=== PATIENT | male | born 1980 | race Two or more races ===

== ENCOUNTER 2020-01-24 13:50 | Inpatient (IN) | payer BC ==
--- NOTE | 2020-01-24 14:54 | CR ---
Indication: Positive for coronavirus 19 Comparison: None available. Technique: Single AP view chest Findings: There is hyperinflation and moderate bronchial thickening. There are patchy airspace opacities of the bilateral hemithoraces likely representing multifocal infiltrates. The cardiomediastinal silhouette is within normal limits. The bony thorax is grossly intact. Impression: Hyperinflation with moderate bronchial thickening. Patchy airspace opacities likely representing multifocal infiltrates. Dictated by Zheng Borges MD @ Jan 24 2020 2:50PM Signed by Dr. Zheng Borges @ Jan 24 2020 2:52PM
--- NOTE | 2020-01-24 15:00 | EDM.PDOC ---
ED [facility] GENERAL MEDICAL PROBLEM - General Chief Complaint: Respiratory Problem Stated Complaint: COVID Time Seen by Provider: 01/24/20 13:55 Source of Information: Reports: Patient, Old Records History Limitations: Reports: No Limitations - History of Present Illness INITIAL COMMENTS - FREE TEXT/NARRATIVE: This is a very pleasant 39-year-old male with no past medical history presenting with infectious symptoms. He reports an 8-day history of cough, intermittent fever, body aches, fatigue, diarrhea. He reports a 2-day history of intermittent substernal chest discomfort described as "poking". Also complains of some exertional shortness of breath. He did test positive for COVID-19 earlier today at another clinic. His is also ill with COVID-19. Nothing makes the chest pain better or worse. It is not exertional. It does not radiate. He is intermittently taking [id number] cough and cold medications without much relief. Denies any history of coronary artery disease, cardiac history, or venous thromboembolism. Denies any lower extremity swelling or pain, hemoptysis. No surgical history. ROS: A 10-point review of systems was negative, except as noted in the HPI (or in the ROS section of this note). Past medical history: Reviewed, no additional pertinent history. Surgical history: Reviewed in system, no additional pertinent history. Social history: Reviewed in system, no additional pertinent history. Family history: Reviewed in system, no additional pertinent history. Limited physical examination was performed due to COVID pandemic, distanced physical examination to prevent physician exposure and to preserve PPE. Vital signs reviewed. Nursing notes reviewed. Constitutional: Awake, alert, non-distressed. Head: Normocephalic, atraumatic. Eyes: No scleral icterus. Neck: Able to fully flex and extend. Fully rotates side to side. Cardiovascular: No extremity edema. Pulmonary: normal work of breathing, no accessory muscle use. Speaking in full sentences, handling secretions well. Abdomen/GI: nondistended Musculoskeletal: No deformities. Integumentary: Appropriate color for ethnicity, warm, dry, no pallor or jaundice, no rash. Neurologic: Alert, answering questions appropriately, normal speech, no facial droop, moving all extremities well. Normal voice. Psychiatric: Appropriate mood and affect, normal thought process. This patient was seen and evaluated during the 2019 SARS-CoV-2 novel coronavirus pandemic period. Community viral transmission is ongoing at time of this encounter. generalized Pain Score (Numeric/FACES): 10 - Related Data Allergies Allergy/AdvReac Type Severity Reaction Status Date / Time No Known Allergies Allergy Verified 01/24/20 14:18 Home Meds: Home Meds . [No Known Home Meds] 01/24/20 [History] Past Medical History - Past Health History Medical/Surgical History: Denies Medical/Surgical History Social & Family History - Tobacco Use Tobacco Use Status *Q: Never Tobacco User - Recreational Drug Use Recreational Drug Use: No ED ROS GENERAL - Review of Systems Review Of Systems: See Below ED EXAM, GENERAL - Physical Exam Exam: See Below #1 Interpretation EKG Interpretation Comments: 12-Lead ECG Interpretation Acquired: 3:38 PM Rhythm: Sinus rhythm Rate: 100 beats a minute [place]: Normal Intervals: Normal Ectopy: None RV Strain: No obvious RV strain pattern. ST Segments/T-Waves: No notable changes Acute Ischemic Changes: None apparent Interpretation: No STEMI Course - Vital Signs Text/Narrative:: Patient hemodynamically stable, afebrile, well-appearing, looks nontoxic. Differential diagnosis includes but is not limited to: COVID-19 infection, bacterial pneumonia, viral pneumonia, acute viral syndrome, less likely acute coronary syndrome or pulmonary embolism, and many others Chest x-ray shows hyperinflation with moderate bronchial thickening and patchy airspace opacities. Twelve-lead EKG is nonischemic. CBC shows normal cell lines. Metabolic panel shows mild creatinine elevation at 1.4. Negative troponin. Low suspicion for PE given normal heart rate and oxygen saturations. No hemoptysis or lower extremity edema. No historical risk factors for VTE other than COVID infection. No objective evidence of myocardial ischemia. His symptoms seem to be consistent with a COVID-19 infection. No evidence of acute coronary syndrome and low suspicion for pulmonary embolism. We did ambulate the patient around the emergency department and he did desaturate to 89% and appeared dyspneic with respiratory rate in the low 20s. Given the hypoxia and increased work of breathing I think he should be admitted to the hospital. Will administer low flow nasal cannula oxygen, dexamethasone, remdesivir (verbally consented by the admitting hospitalist team), and some IV fluids. I spoke with the hospitalist Dr. Han Ro who agrees to admit. Last Recorded V/S: Last Vital Signs Temp 37.9 C 01/24/20 14:15 Pulse 108 H 01/24/20 16:15 Resp 22 H 01/24/20 16:15 BP 114/73 01/24/20 16:15 Pulse Ox 92 L 01/24/20 16:15 - Orders/Labs/Meds Orders: Active Orders 24 hr Category Date Time Status EKG Documentation Completion [RC] STAT Care 01/24/20 14:22 Active Medication Orders Acetaminophen (Tylenol) 650 mg PO Q4H PRN PRN Reason: Pain (Mild 1-3)/fever Albuterol/Ipratropium (Combivent Respimat) 0 gm INH Q6HRRT [facility] Azithromycin (Zithromax) 500 mg PO Q24H [facility] Dexamethasone (Dexamethasone) 6 mg PO DAILY@1700 YAKLEIN Enoxaparin Sodium (Lovenox) 40 mg SUBCUT Q24H [facility] Lactated Ringer's (Ringers, Lactated) 1,000 mls @ 999 mls/hr IV .BOLUS ONE Stop: 01/24/20 17:33 Last Admin: 01/24/20 17:04 Dose: 999 mls/hr Documented by: GRECIA Remdesivir 100 mg/ Sodium (Chloride) 100 mls @ 100 mls/hr IV Q24H YAKELIN Stop: 01/28/20 17:59 Ceftriaxone Sodium/Dextrose 1 (gm/ Premix) 50 mls @ 100 mls/hr IV Q24H YAKELIN Ondansetron HCl (Zofran) 4 mg IVPUSH Q4H PRN PRN Reason: Nausea Pantoprazole Sodium (Protonix) 40 mg PO DAILY [facility] Labs: Laboratory Tests 01/24/20 01/24/20 Range/Units 15:19 15:19 WBC 7.26 (4.0-11.0) K/uL RBC 5.05 (4.50-5.90) M/uL Hgb 15.1 (13.0-17.0) g/dL Hct 44.6 (38.0-50.0) % MCV 88.3 (80.0-98.0) fL MCH 29.9 (27.0-32.0) pg MCHC 33.9 (31.0-37.0) g/dL RDW Std Deviation 44.2 (28.0-62.0) fl RDW Coeff of Sarmad 14 (11.0-15.0) % Plt Count 168 (150-400) K/uL MPV 8.70 (7.40-12.00) fL Neut % (Auto) 81.9 H (48.0-80.0) % Lymph % (Auto) 15.0 L (16.0-40.0) % [place] % (Auto) 3.0 (0.0-15.0) % Eos % (Auto) 0.0 (0.0-7.0) % Baso % (Auto) 0.1 (0.0-1.5) % Neut # (Auto) 5.9 H (1.4-5.7) K/uL Lymph # (Auto) 1.1 (0.6-2.4) K/uL [place] # (Auto) 0.2 (0.0-0.8) K/uL Eos # (Auto) 0.0 (0.0-0.7) K/uL Baso # (Auto) 0.0 (0.0-0.1) K/uL Nucleated RBC % 0.0 /100WBC Nucleated RBCs # 0 K/uL Sodium 134 L (136-148) mmol/L Potassium 4.2 (3.5-5.1) mmol/L Chloride 99 (98-107) mmol/L Carbon Dioxide 21.7 (21.0-32.0) mmol/L BUN 17 (7.0-18.0) mg/dL Creatinine 1.4 H (0.8-1.3) mg/dL Est Cr Clr Drug Dosing 80.73 mL/min Estimated GFR (MDRD) 55.8 ml/min Glucose 108 H (74-106) mg/dL Calcium 8.6 (8.5-10.1) mg/dL Total Bilirubin 0.5 (0.2-1.0) mg/dL AST 39 H (15-37) IU/L ALT 49 (14-63) IU/L Alkaline Phosphatase 65 (46-116) U/L Troponin I < 0.050 (0.000-0.056) ng/mL Total Protein 8.0 (6.4-8.2) g/dL Albumin 3.4 (3.4-5.0) g/dL Globulin 4.6 H (2.6-4.0) g/dL Albumin/Globulin Ratio 0.7 L (0.9-1.6) Meds: Medications Generic Name Dose Route Start Last Admin Trade Name Freperi PRN Reason Stop Dose Admin Acetaminophen 650 mg 01/24/20 17:09 Tylenol PO Q4H PRN Pain (Mild 1-3)/fever Albuterol/Ipratropium 0 gm 01/24/20 18:00 Combivent Respimat INH Q6HRRT [facility] Azithromycin 500 mg 01/24/20 17:30 Zithromax PO Q24H [facility] Dexamethasone 6 mg 01/25/20 17:00 Dexamethasone PO DAILY@1700 [facility] Enoxaparin Sodium 40 mg 01/24/20 17:00 Lovenox SUBCUT Q24H [facility] Lactated Ringer's 1,000 mls @ 999 mls/hr 01/24/20 16:33 01/24/20 17:04 Ringers, Lactated IV 01/24/20 17:33 999 mls/hr .BOLUS ONE Administration Remdesivir 100 mg/ Sodium 100 mls @ 100 mls/hr 01/25/20 17:00 Chloride IV 01/28/20 17:59 Q24H [facility] Ceftriaxone Sodium/Dextrose 1 50 mls @ 100 mls/hr 01/24/20 17:30 gm/ Premix IV Q24H [facility] Ondansetron HCl 4 mg 01/24/20 17:09 Zofran IVPUSH Q4H PRN Nausea Pantoprazole Sodium 40 mg 01/24/20 17:15 Protonix PO DAILY [facility] Discontinued Medications Generic Name Dose Route Start Last Admin Trade Name Freperi PRN Reason Stop Dose Admin Dexamethasone 6 mg 01/24/20 16:28 01/24/20 17:04 Decadron IVPUSH 01/24/20 16:29 6 mg ONETIME ONE Administration Remdesivir 200 mg/ Sodium 250 mls @ 250 mls/hr 01/24/20 16:31 Chloride IV 01/24/20 16:32 ONETIME ONE Departure - Departure Time of Disposition: 16:04 Disposition: Admitted As Inpatient 64 Condition: Good Clinical Impression: COVID-19 virus infection, Atypical chest pain, Hypoxia - Discharge Information *PRESCRIPTION DRUG MONITORING PROGRAM REVIEWED*: Not Applicable *COPY OF PRESCRIPTION DRUG MONITORING REPORT IN PATIENT DALLIN: Not Applicable Sepsis Event Note (ED) - Evaluation Sepsis Screening Result: No Definite Risk - Focused Exam Vital Signs: Vital Signs Temp Pulse Resp BP Pulse Ox 01/24/20 16:15 108 H 22 H 114/73 92 L 01/24/20 14:15 37.9 C 93 19 141/81 H 95 - My Orders Last 24 Hours: My Active Orders 01/24/20 14:22 EKG Documentation Completion [RC] STAT - Assessment/Plan Last 24 Hours: My Active Orders 01/24/20 14:22 EKG Documentation Completion [RC] STAT
[2020-01-24 15:56] LABS: BLOOD UREA NITROGEN,BUN 17 mg/dL (7.0-18.0); CARBON DIOXIDE,CO2 21.7 mmol/L (21.0-32.0); CHLORIDE,CL 99 mmol/L (98-107); GLUCOSE RANDOM 108 mg/dL (74-106); POTASSIUM,K 4.2 mmol/L (3.5-5.1); SODIUM,NA 134 mmol/L (136-148)
[2020-01-24] MEDS ORDERED: Dexamethasone 10 MG/ML SDV IVPUSH ONE (16:28)
[2020-01-24] MEDS ORDERED: REMDESIVIR 200 MG in Sodium Chloride 0.9% 250 ML IV ONE (16:31)
[2020-01-24] MEDS ORDERED: Lactated Ringers 1,000 ML IV ONE (16:33)
[2020-01-24] MEDS ORDERED: Ondansetron 4 MG/2 ML SDV IVPUSH PRN (17:09)
--- NOTE | 2020-01-24 17:10 | PCM.HP.2 ---
H&P History of Present Illness - General Date of Service: 01/24/20 Admit Problem/Dx: Admission Diagnosis/Problem Admission Diagnosis/Problem Hypoxia Source of Information: Patient History Limitations: Reports: No Limitations - History of Present Illness Initial Comments - Free Text/Narative: 39-year-old male presents complaining of shortness of breath, productive cough, fever, body aches and diarrhea for the past 8 days. He reports no significant PMH. He also complains of central chest pain that is constant in nature but worsens when he coughs. The chest pain is not worsened with activity and does not improve with rest. It is described as being sharp in nature. Patient tested positive for COVID-19 at [facility] walk-in clinic earlier today. He reports occasional alcohol use, no tobacco or illicit drug use. In the ER, CBC unremarkable, creatinine 1.4, troponin was negative and CXR showed multifocal infiltrates bilaterally. EKG showed normal sinus rhythm. Patient had normal oxygen saturation on room air but noted to have desaturation to 88% on ambulation. He was given IV 1 L LR bolus, dexamethasone 6 mg and Remdesivir 200 mg. Patient admitted for further evaluation and treatment. generalized Pain Score (Numeric/FACES): 10 - Related Data Allergies/Adverse Reactions: Allergies Allergy/AdvReac Type Severity Reaction Status Date / Time No Known Allergies Allergy Verified 01/24/20 14:18 Home Medications: Home Meds . [No Known Home Meds] 01/24/20 [History] Past Medical History - Past Health History Medical/Surgical History: Denies Medical/Surgical History Social & Family History - Tobacco Use Tobacco Use Status *Q: Never Tobacco User - Recreational Drug Use Recreational Drug Use: No H&P Review of Systems - Review of Systems: Review Of Systems: Comprehensive ROS is negative, except as noted in HPI. Exam - Exam Exam: See Below - Vital Signs Vital Signs: Last Vital Signs Temp 37.9 C 01/24/20 14:15 Pulse 108 H 01/24/20 16:15 Resp 22 H 01/24/20 16:15 BP 114/73 01/24/20 16:15 Pulse Ox 92 L 01/24/20 16:15 Weight: 138.346 kg - Exam General: Alert, Oriented, Cooperative, Mild Distress HEENT: Conjunctiva Clear, EOMI, Pupils Equal, Pupils Reactive Neck: Supple, Trachea Midline Lungs: Clear to Auscultation, Normal Respiratory Effort Cardiovascular: Regular Rate, Regular Rhythm GI/Abdominal Exam: Normal Bowel Sounds, Soft, Non-Tender, No Distention Extremities: Normal Inspection, No Pedal Edema Peripheral Pulses: 2+: Radial (L), Radial (R) Skin: Warm, Dry, Intact Neurological: Cranial Nerves Intact, Strength Equal Bilateral, Normal Speech, Normal Tone Neuro Extensive - Mental Status: Alert, Oriented x3, Normal Mood/Affect Psychiatric: Alert, Normal Affect, Normal Mood - Patient Data Lab Results Last 24 hrs: Laboratory Results - last 24 hr 01/24/20 01/24/20 Range/Units 15:19 15:19 WBC 7.26 (4.0-11.0) K/uL RBC 5.05 (4.50-5.90) M/uL Hgb 15.1 (13.0-17.0) g/dL Hct 44.6 (38.0-50.0) % MCV 88.3 (80.0-98.0) fL MCH 29.9 (27.0-32.0) pg MCHC 33.9 (31.0-37.0) g/dL RDW Std Deviation 44.2 (28.0-62.0) fl RDW Coeff of Sarmad 14 (11.0-15.0) % Plt Count 168 (150-400) K/uL MPV 8.70 (7.40-12.00) fL Neut % (Auto) 81.9 H (48.0-80.0) % Lymph % (Auto) 15.0 L (16.0-40.0) % [place] % (Auto) 3.0 (0.0-15.0) % Eos % (Auto) 0.0 (0.0-7.0) % Baso % (Auto) 0.1 (0.0-1.5) % Neut # (Auto) 5.9 H (1.4-5.7) K/uL Lymph # (Auto) 1.1 (0.6-2.4) K/uL [place] # (Auto) 0.2 (0.0-0.8) K/uL Eos # (Auto) 0.0 (0.0-0.7) K/uL Baso # (Auto) 0.0 (0.0-0.1) K/uL Nucleated RBC % 0.0 /100WBC Nucleated RBCs # 0 K/uL Sodium 134 L (136-148) mmol/L Potassium 4.2 (3.5-5.1) mmol/L Chloride 99 (98-107) mmol/L Carbon Dioxide 21.7 (21.0-32.0) mmol/L BUN 17 (7.0-18.0) mg/dL Creatinine 1.4 H (0.8-1.3) mg/dL Est Cr Clr Drug Dosing 80.73 mL/min Estimated GFR (MDRD) 55.8 ml/min Glucose 108 H (74-106) mg/dL Calcium 8.6 (8.5-10.1) mg/dL Total Bilirubin 0.5 (0.2-1.0) mg/dL AST 39 H (15-37) IU/L ALT 49 (14-63) IU/L Alkaline Phosphatase 65 (46-116) U/L Troponin I < 0.050 (0.000-0.056) ng/mL Total Protein 8.0 (6.4-8.2) g/dL Albumin 3.4 (3.4-5.0) g/dL Globulin 4.6 H (2.6-4.0) g/dL Albumin/Globulin Ratio 0.7 L (0.9-1.6) Result Diagrams: 01/24/20 15:19 01/24/20 15:19 Sepsis Event Note - Evaluation Sepsis Screening Result: No Definite Risk - Focused Exam Vital Signs: Vital Signs Temp Pulse Resp BP Pulse Ox 01/24/20 16:15 108 H 22 H 114/73 92 L 01/24/20 14:15 37.9 C 93 19 141/81 H 95 - Problem List (1) Hypoxia SNOMED Code(s): 934829102 ICD Code: R09.02 - HYPOXEMIA Status: Acute Current Visit: Yes (2) ELSIE (acute kidney injury) SNOMED Code(s): 88760928, 04220079 ICD Code: N17.9 - ACUTE KIDNEY FAILURE, UNSPECIFIED Status: Acute Current Visit: Yes (3) COVID-19 virus infection SNOMED Code(s): 080306204 ICD Code: U07.1 - COVID-19 Status: Acute Current Visit: Yes Problem List Initiated/Reviewed/Updated: Yes Orders Last 24hrs: Active Orders 24 hr Category Date Time Status Admission Status [Patient Status] [ADT] Stat ADT 01/24/20 16:31 Active EKG Documentation Completion [RC] STAT Care 01/24/20 14:22 Active Oxygen Therapy [RC] PRN Care 01/24/20 17:09 Ordered Oxygen Therapy, ED [RC] ASDIRECTED Care 01/24/20 16:32 Active Up ad Gaye [RC] ASDIRECTED Care 01/24/20 17:09 Ordered VTE/DVT Education [RC] PER UNIT ROUTINE Care 01/24/20 17:09 Ordered Vital Signs [RC] Q4H Care 01/24/20 17:09 Ordered Regular Diet [DIET] Diet 01/24/20 Dinner Ordered CBC WITH AUTO DIFF [HEME] AM Lab 01/25/20 05:11 Ordered COMPREHENSIVE METABOLIC PN,CMP [CHEM] AM Lab 01/25/20 05:11 Ordered Acetaminophen [TylenoL] Med 01/24/20 17:09 Ordered 650 mg PO Q4H PRN Enoxaparin [Lovenox] Med 01/24/20 17:15 Ordered 40 mg SUBCUT Q24H Lactated Ringers [Ringers, Lactated] 1,000 ml Med 01/24/20 16:33 Active IV .BOLUS Ondansetron [Zofran] Med 01/24/20 17:09 Ordered 4 mg IVPUSH Q4H PRN Resuscitation Status Routine Resus Stat 01/24/20 17:09 Ordered Medication Orders Acetaminophen (Tylenol) 650 mg PO Q4H PRN PRN Reason: Pain (Mild 1-3)/fever Enoxaparin Sodium (Lovenox) 40 mg SUBCUT Q24H YAKELIN Lactated Ringer's (Ringers, Lactated) 1,000 mls @ 999 mls/hr IV .BOLUS ONE Stop: 01/24/20 17:33 Last Admin: 01/24/20 17:04 Dose: 999 mls/hr Documented by: GRECIA Ondansetron HCl (Zofran) 4 mg IVPUSH Q4H PRN PRN Reason: Nausea Assessment/Plan Comment:: Assessment and Plan: 1. Acute hypoxic respiratory failure secondary to COVID-19: - Admit to med/surg. Supplemental oxygen PRN to maintain O2 saturation > 92%. Combivent q6h prn, dexamethasone 6 mg qd, Remdesivir, PPI, rocephin and az ithromycin. Encouraged incentive spirometer use. Patient's chest pain is most likely pleuritic in nature. EKG was unremarkable and troponin was negative. Calculated Well's score is 1.5 (low risk). Will continue to monitor. - Remdesivir fact sheet given to patient, risks were explained and he consented to treatment. - CXR showed multifocal infiltrates. 2. ELSIE: - Patient received 1 L IV LR bolus in ER. Will recheck with AM labs. 3. DVT prophylaxis: - Lovenox 40 mg subcut qd.
[2020-01-24] MEDS: Azithromycin 250 MG Tab PO SCH (18:30)
[2020-01-24] MEDS: Pantoprazole 40 MG Tab.CR PO SCH (18:31)
[2020-01-24] MEDS: Enoxaparin 40 MG/0.4 ML Syringe SUBCUT SCH (18:31)
[2020-01-24] MEDS: Albuterol/Ipratropium 4 GM Inhalation Spray INH SCH (18:35)
[2020-01-24] MEDS: cefTRIAXone 1 GM in Premix Bag 1 BAG IV SCH (18:38)
[2020-01-24] MEDS: Acetaminophen 325 MG Tab PO PRN (21:18)
[2020-01-24] MEDS: Benzonatate 100 MG Cap PO PRN (21:18)
[2020-01-25] MEDS: Albuterol/Ipratropium 4 GM Inhalation Spray INH SCH ×4 (00:52→17:48)
[2020-01-25 06:41] LABS: BLOOD UREA NITROGEN,BUN 19 mg/dL (7.0-18.0); CARBON DIOXIDE,CO2 23.7 mmol/L (21.0-32.0); CHLORIDE,CL 101 mmol/L (98-107); GLUCOSE RANDOM 140 mg/dL (74-106); POTASSIUM,K 4.5 mmol/L (3.5-5.1); SODIUM,NA 135 mmol/L (136-148)
[2020-01-25] MEDS: Pantoprazole 40 MG Tab.CR PO SCH (08:36)
--- NOTE | 2020-01-25 09:33 | PCM.PN ---
- General Info Date of Service: 01/25/20 Subjective Update: Reports SOB and cough improved since last night. Tolerating oral diet. Reported having sweats overnight. - Patient Data Vitals - Most Recent: Last Vital Signs Temp 36.3 C 01/25/20 08:00 Pulse 74 01/25/20 08:00 Resp 20 01/25/20 08:00 BP 121/64 01/25/20 08:00 Pulse Ox 91 L 01/25/20 08:00 Weight - Most Recent: 138.346 kg I&O - Last 24 Hours: Intake & Output 01/24/20 01/25/20 01/25/20 22:59 06:59 14:59 Intake Total 850 Balance 850 Lab Results Last 24 Hours: Laboratory Results - last 24 hr 01/24/20 01/24/20 01/24/20 Range/Units 15:19 15:19 18:40 WBC 7.26 (4.0-11.0) K/uL RBC 5.05 (4.50-5.90) M/uL Hgb 15.1 (13.0-17.0) g/dL Hct 44.6 (38.0-50.0) % MCV 88.3 (80.0-98.0) fL MCH 29.9 (27.0-32.0) pg MCHC 33.9 (31.0-37.0) g/dL RDW Std Deviation 44.2 (28.0-62.0) fl RDW Coeff of Sarmad 14 (11.0-15.0) % Plt Count 168 (150-400) K/uL MPV 8.70 (7.40-12.00) fL Neut % (Auto) 81.9 H (48.0-80.0) % Lymph % (Auto) 15.0 L (16.0-40.0) % [place] % (Auto) 3.0 (0.0-15.0) % Eos % (Auto) 0.0 (0.0-7.0) % Baso % (Auto) 0.1 (0.0-1.5) % Neut # (Auto) 5.9 H (1.4-5.7) K/uL Lymph # (Auto) 1.1 (0.6-2.4) K/uL [place] # (Auto) 0.2 (0.0-0.8) K/uL Eos # (Auto) 0.0 (0.0-0.7) K/uL Baso # (Auto) 0.0 (0.0-0.1) K/uL Nucleated RBC % 0.0 /100WBC Nucleated RBCs # 0 K/uL Lactate 1.1 (0.20-2.00) mmol/L Sodium 134 L (136-148) mmol/L Potassium 4.2 (3.5-5.1) mmol/L Chloride 99 (98-107) mmol/L Carbon Dioxide 21.7 (21.0-32.0) mmol/L BUN 17 (7.0-18.0) mg/dL Creatinine 1.4 H (0.8-1.3) mg/dL Est Cr Clr Drug Dosing 80.73 mL/min Estimated GFR (MDRD) 55.8 ml/min Glucose 108 H (74-106) mg/dL Calcium 8.6 (8.5-10.1) mg/dL Phosphorus (2.6-4.7) mg/dL Magnesium (1.8-2.4) mg/dL Total Bilirubin 0.5 (0.2-1.0) mg/dL AST 39 H (15-37) IU/L ALT 49 (14-63) IU/L Alkaline Phosphatase 65 (46-116) U/L Troponin I < 0.050 (0.000-0.056) ng/mL Total Protein 8.0 (6.4-8.2) g/dL Albumin 3.4 (3.4-5.0) g/dL Globulin 4.6 H (2.6-4.0) g/dL Albumin/Globulin Ratio 0.7 L (0.9-1.6) 01/25/20 01/25/20 Range/Units 05:45 05:45 WBC 5.43 (4.0-11.0) K/uL RBC 5.18 (4.50-5.90) M/uL Hgb 15.2 (13.0-17.0) g/dL Hct 46.0 (38.0-50.0) % MCV 88.8 (80.0-98.0) fL MCH 29.3 (27.0-32.0) pg MCHC 33.0 (31.0-37.0) g/dL RDW Std Deviation 44.4 (28.0-62.0) fl RDW Coeff of Sarmad 14 (11.0-15.0) % Plt Count 217 (150-400) K/uL MPV 9.00 (7.40-12.00) fL Neut % (Auto) 80.8 H (48.0-80.0) % Lymph % (Auto) 15.3 L (16.0-40.0) % [place] % (Auto) 3.5 (0.0-15.0) % Eos % (Auto) 0.0 (0.0-7.0) % Baso % (Auto) 0.4 (0.0-1.5) % Neut # (Auto) 4.4 (1.4-5.7) K/uL Lymph # (Auto) 0.8 (0.6-2.4) K/uL [place] # (Auto) 0.2 (0.0-0.8) K/uL Eos # (Auto) 0.0 (0.0-0.7) K/uL Baso # (Auto) 0.0 (0.0-0.1) K/uL Nucleated RBC % 0.0 /100WBC Nucleated RBCs # 0 K/uL Lactate (0.20-2.00) mmol/L Sodium 135 L (136-148) mmol/L Potassium 4.5 (3.5-5.1) mmol/L Chloride 101 (98-107) mmol/L Carbon Dioxide 23.7 (21.0-32.0) mmol/L BUN 19 H (7.0-18.0) mg/dL Creatinine 1.2 (0.8-1.3) mg/dL Est Cr Clr Drug Dosing 94.19 mL/min Estimated GFR (MDRD) > 60.0 ml/min Glucose 140 H (74-106) mg/dL Calcium 8.6 (8.5-10.1) mg/dL Phosphorus 3.9 (2.6-4.7) mg/dL Magnesium 2.5 H (1.8-2.4) mg/dL Total Bilirubin 0.4 (0.2-1.0) mg/dL AST 37 (15-37) IU/L ALT 50 (14-63) IU/L Alkaline Phosphatase 62 (46-116) U/L Troponin I (0.000-0.056) ng/mL Total Protein 8.0 (6.4-8.2) g/dL Albumin 3.1 L (3.4-5.0) g/dL Globulin 4.9 H (2.6-4.0) g/dL Albumin/Globulin Ratio 0.6 L (0.9-1.6) Med Orders - Current: Current Medications Acetaminophen (Tylenol) 650 mg PO Q4H PRN PRN Reason: Pain (Mild 1-3)/fever Last Admin: 01/24/20 21:18 Dose: 650 mg Documented by: Albuterol/Ipratropium (Combivent Respimat) 0 gm INH Q6HRRT [facility] Last Admin: 01/25/20 06:12 Dose: 1 puff Documented by: Azithromycin (Zithromax) 500 mg PO Q24H [facility] Last Admin: 01/24/20 18:30 Dose: 500 mg Documented by: Benzonatate (Tessalon Perles) 100 mg PO TID PRN PRN Reason: Cough Last Admin: 01/24/20 21:18 Dose: 100 mg Documented by: Dexamethasone (Dexamethasone) 6 mg PO DAILY@1700 YAKELIN Enoxaparin Sodium (Lovenox) 40 mg SUBCUT Q24H [facility] Last Admin: 01/24/20 18:31 Dose: 40 mg Documented by: Remdesivir 100 mg/ Sodium (Chloride) 100 mls @ 100 mls/hr IV Q24H [facility] Stop: 01/28/20 17:59 Ceftriaxone Sodium/Dextrose 1 (gm/ Premix) 50 mls @ 100 mls/hr IV Q24H [facility] Last Admin: 01/24/20 18:38 Dose: 100 mls/hr Documented by: Ondansetron HCl (Zofran) 4 mg IVPUSH Q4H PRN PRN Reason: Nausea Pantoprazole Sodium (Protonix) 40 mg PO DAILY [facility] Last Admin: 01/25/20 08:36 Dose: 40 mg Documented by: Discontinued Medications Dexamethasone (Decadron) 6 mg IVPUSH ONETIME ONE Stop: 01/24/20 16:29 Last Admin: 01/24/20 17:04 Dose: 6 mg Documented by: Remdesivir 200 mg/ Sodium (Chloride) 250 mls @ 250 mls/hr IV ONETIME ONE Stop: 01/24/20 16:32 Last Admin: 01/24/20 17:42 Dose: 250 mls/hr Documented by: Lactated Ringer's (Ringers, Lactated) 1,000 mls @ 999 mls/hr IV .BOLUS ONE Stop: 01/24/20 17:33 Last Admin: 01/24/20 17:04 Dose: 999 mls/hr Documented by: - Exam General: Alert, Oriented, Cooperative, No Acute Distress Lungs: Clear to Auscultation, Normal Respiratory Effort Cardiovascular: Regular Rate, Regular Rhythm GI/Abdominal Exam: Normal Bowel Sounds, Soft, Non-Tender, No Distention Extremities: Normal Inspection, No Pedal Edema Sepsis Event Note - Evaluation Sepsis Screening Result: No Definite Risk - Focused Exam Vital Signs: Vital Signs Temp Pulse Resp BP Pulse Ox 01/25/20 08:00 36.3 C 74 20 121/64 91 L 01/25/20 04:09 36.1 C 68 20 128/73 94 L 01/25/20 00:56 36.3 C 89 20 130/75 94 L - Problem List & Annotations (1) Hypoxia SNOMED Code(s): 658687623 Code(s): R09.02 - HYPOXEMIA Status: Acute Current Visit: Yes (2) ELSIE (acute kidney injury) SNOMED Code(s): 24919045, 94135736 Code(s): N17.9 - ACUTE KIDNEY FAILURE, UNSPECIFIED Status: Acute Current Visit: Yes (3) COVID-19 virus infection SNOMED Code(s): 672711747 Code(s): U07.1 - COVID-19 Status: Acute Current Visit: Yes - Problem List Review Problem List Initiated/Reviewed/Updated: Yes - My Orders Last 24 Hours: My Active Orders 01/24/20 Dinner Regular Diet [DIET] 01/24/20 17:00 Azithromycin [Zithromax] 500 mg PO Q24H Enoxaparin [Lovenox] 40 mg SUBCUT Q24H cefTRIAXone [Rocephin in Dextrose,Iso-Osm 1 GM/50 ML] 1 gm Premix Bag 1 bag IV Q24H 01/24/20 17:09 Oxygen Therapy [RC] PRN Up ad Gaye [RC] ASDIRECTED VTE/DVT Education [RC] PER UNIT ROUTINE Vital Signs [RC] Q4H Acetaminophen [TylenoL] 650 mg PO Q4H PRN Ondansetron [Zofran] 4 mg IVPUSH Q4H PRN Resuscitation Status Routine 01/24/20 17:14 RT Incentive Spirometry [RC] ASDIRECTED RT Post Treatment Assessment [RC] Click to Edit RT Pre-Treatment Assessment [RC] Click to Edit 01/24/20 17:15 Pantoprazole [ProTONIX] 40 mg PO DAILY 01/24/20 18:00 Albuterol/Ipratropium [Combivent Respimat] See Dose Instructions INH Q6HRRT 01/24/20 18:25 Blood Culture x2 Reflex Set [OM.PC] Stat 01/24/20 18:40 CULTURE BLOOD [BC] Stat 01/24/20 18:50 CULTURE BLOOD [BC] Stat 01/24/20 18:52 Benzonatate [Tessalon Perles] 100 mg PO TID PRN 01/25/20 17:00 Remdesivir (Eua) [Remdesivir (EUA)] 100 mg Sodium Chloride 0.9% [Normal Saline] 100 ml IV Q24H dexAMETHasone 6 mg PO DAILY@1700 - Plan Plan:: Assessment and Plan: 1. Acute hypoxic respiratory failure secondary to COVID-19: - Continue supplemental oxygen PRN to maintain O2 saturation > 92%. Combivent q6h prn, dexamethasone 6 mg qd, Remdesivir, PPI, rocephin and azithromycin. Educated on use of incentive spirometer. - Patient's chest pain is most likely pleuritic in nature. EKG was unremarkable and troponin was negative. Calculated Well's score is 1.5 (low risk). Will continue to monitor. Patient notes improvement today. - Remdesivir fact sheet given to patient, risks were explained and he consented to treatment. - CXR showed multifocal infiltrates. 2. ELSIE, resolved. 3. DVT prophylaxis: - Lovenox 40 mg subcut qd.
[2020-01-25] MEDS: Benzonatate 100 MG Cap PO PRN (15:25)
[2020-01-25] MEDS: Acetaminophen 325 MG Tab PO PRN (15:25)
[2020-01-25] MEDS: Azithromycin 250 MG Tab PO SCH (16:58)
[2020-01-25] MEDS: Enoxaparin 40 MG/0.4 ML Syringe SUBCUT SCH (16:59)
[2020-01-25] MEDS: cefTRIAXone 1 GM in Premix Bag 1 BAG IV SCH (16:59)
[2020-01-25] MEDS ORDERED: Dexamethasone 4 MG Tab PO SCH (17:00)
[2020-01-25] MEDS ORDERED: REMDESIVIR 100 MG in Sodium Chloride 0.9% 100 ML IV SCH (17:00)
[2020-01-26] MEDS: Albuterol/Ipratropium 4 GM Inhalation Spray INH SCH ×3 (00:01→11:38)
[2020-01-26 06:52] LABS: BLOOD UREA NITROGEN,BUN 23 mg/dL (7.0-18.0); CARBON DIOXIDE,CO2 24.3 mmol/L (21.0-32.0); CHLORIDE,CL 103 mmol/L (98-107); GLUCOSE RANDOM 146 mg/dL (74-106); POTASSIUM,K 4.8 mmol/L (3.5-5.1); SODIUM,NA 137 mmol/L (136-148)
[2020-01-26] MEDS: Pantoprazole 40 MG Tab.CR PO SCH (09:43)
--- NOTE | 2020-01-26 11:46 | PCM.DCSUM1 ---
Discharge Summary - Discharge Data Discharge Date: 01/26/20 Discharge Disposition: Home, Self-Care 01 Condition: Good - Referral to Home Health Primary Care Physician: PCP None - Patient Summary/Data Hospital Course: 39-year-old male admitted for COVID-19. He presented with shortness of breath, productive cough, fever, body aches and diarrhea for the past 8 days. Patient tested positive for COVID-19 at [facility] walk-in clinic on the day of admission. In the ER, CBC unremarkable, creatinine 1.4, troponin was negative and CXR showed multifocal infiltrates bilaterally. EKG showed normal sinus rhythm. Patient had normal oxygen saturation on room air but noted to have desaturation to 88% on ambulation. He was given IV 1 L LR bolus, dexamethasone 6 mg and Remdesivir 200 mg. Patient admitted for two nights and continued to received Remdesivir and dexamethasone as well as Rocephin and azithromycin. Today he is sating 94% on room air and is requesting discharge. Patient was discharged home to follow up with [facility]. - Patient Instructions Diet: Regular Diet as Tolerated Notify Provider of: Fever, Increased Pain, Nausea and/or Vomiting - Discharge Plan *PRESCRIPTION DRUG MONITORING PROGRAM REVIEWED*: Not Applicable *COPY OF PRESCRIPTION DRUG MONITORING REPORT IN PATIENT DALLIN: Not Applicable Prescriptions/Med Rec: levoFLOXacin [Levaquin] 750 mg PO DAILY #4 tab Albuterol Sulfate [Proventil Hfa] 6.7 gm IH Q6H PRN #1 hfa.aer.ad PRN Reason: Wheezing Home Medications: Home Meds Albuterol Sulfate [Proventil Hfa] 6.7 gm IH Q6H PRN #1 hfa.aer.ad 01/26/20 [Rx] levoFLOXacin [Levaquin] 750 mg PO DAILY #4 tab 01/26/20 [Rx] Patient Handouts: COVID-19 Frequently Asked Questions, COVID-19, Nonspecific Chest Pain, Adult, COVID-19: How to Protect Yourself and Others - CDC Referrals: [facility] - [facility] Practice [Provider Group] - 1 Week (As needed, for follow-up of symptoms) - Discharge Summary/Plan Comment DC Time >30 min.: No - Patient Data Vitals - Most Recent: Last Vital Signs Temp 36.4 C 01/26/20 09:40 Pulse 72 01/26/20 09:40 Resp 18 11/15/20 09:40 BP 129/64 01/26/20 09:40 Pulse Ox 95 01/26/20 10:10 Weight - Most Recent: 138.346 kg I&O - Last 24 hours: Intake & Output 01/25/20 01/26/20 01/26/20 22:59 06:59 14:59 Intake Total 950 550 Balance 950 550 Lab Results - Last 24 hrs: Laboratory Results - last 24 hr 01/26/20 01/26/20 Range/Units 05:55 05:55 WBC 5.72 (4.0-11.0) K/uL RBC 5.13 (4.50-5.90) M/uL Hgb 15.3 (13.0-17.0) g/dL Hct 45.5 (38.0-50.0) % MCV 88.7 (80.0-98.0) fL MCH 29.8 (27.0-32.0) pg MCHC 33.6 (31.0-37.0) g/dL RDW Std Deviation 44.1 (28.0-62.0) fl RDW Coeff of Sarmad 14 (11.0-15.0) % Plt Count 248 (150-400) K/uL MPV 9.00 (7.40-12.00) fL Neut % (Auto) 74.5 (48.0-80.0) % Lymph % (Auto) 17.7 (16.0-40.0) % [place] % (Auto) 7.5 (0.0-15.0) % Eos % (Auto) 0.0 (0.0-7.0) % Baso % (Auto) 0.3 (0.0-1.5) % Neut # (Auto) 4.3 (1.4-5.7) K/uL Lymph # (Auto) 1.0 (0.6-2.4) K/uL [place] # (Auto) 0.4 (0.0-0.8) K/uL Eos # (Auto) 0.0 (0.0-0.7) K/uL Baso # (Auto) 0.0 (0.0-0.1) K/uL Nucleated RBC % 0.0 /100WBC Nucleated RBCs # 0 K/uL Sodium 137 (136-148) mmol/L Potassium 4.8 (3.5-5.1) mmol/L Chloride 103 (98-107) mmol/L Carbon Dioxide 24.3 (21.0-32.0) mmol/L BUN 23 H (7.0-18.0) mg/dL Creatinine 1.2 (0.8-1.3) mg/dL Est Cr Clr Drug Dosing 94.19 mL/min Estimated GFR (MDRD) > 60.0 ml/min Glucose 146 H (74-106) mg/dL Calcium 8.3 L (8.5-10.1) mg/dL Total Bilirubin 0.3 (0.2-1.0) mg/dL AST 40 H (15-37) IU/L ALT 54 (14-63) IU/L Alkaline Phosphatase 67 (46-116) U/L Total Protein 7.6 (6.4-8.2) g/dL Albumin 3.0 L (3.4-5.0) g/dL Globulin 4.6 H (2.6-4.0) g/dL Albumin/Globulin Ratio 0.7 L (0.9-1.6) LYNDA Results - Last 24 hrs: Microbiology 01/24/20 18:50 Aerobic Blood Culture - Preliminary Blood - Venous - Lab Draw NO GROWTH AFTER 1 DAY Anaerobic Blood Culture - Preliminary NO GROWTH AFTER 1 DAY 01/24/20 18:40 Aerobic Blood Culture - Preliminary Blood - Venous NO GROWTH AFTER 1 DAY Anaerobic Blood Culture - Preliminary NO GROWTH AFTER 1 DAY Med Orders - Current: Current Medications Acetaminophen (Tylenol) 650 mg PO Q4H PRN PRN Reason: Pain (Mild 1-3)/fever Last Admin: 01/25/20 15:25 Dose: 650 mg Documented by: Albuterol/Ipratropium (Combivent Respimat) 0 gm INH Q6HRRT [facility] Last Admin: 01/26/20 11:38 Dose: 1 puff Documented by: Azithromycin (Zithromax) 500 mg PO Q24H [facility] Last Admin: 01/25/20 16:58 Dose: 500 mg Documented by: Benzonatate (Tessalon Perles) 100 mg PO TID PRN PRN Reason: Cough Last Admin: 01/25/20 15:25 Dose: 100 mg Documented by: Dexamethasone (Dexamethasone) 6 mg PO DAILY@1700 [facility] Last Admin: 01/25/20 16:58 Dose: 6 mg Documented by: Enoxaparin Sodium (Lovenox) 40 mg SUBCUT Q24H [facility] Last Admin: 01/25/20 16:59 Dose: 40 mg Documented by: Remdesivir 100 mg/ Sodium (Chloride) 100 mls @ 100 mls/hr IV Q24H [facility] Stop: 01/28/20 17:59 Last Admin: 01/25/20 17:50 Dose: 100 mls/hr Documented by: Ceftriaxone Sodium/Dextrose 1 (gm/ Premix) 50 mls @ 100 mls/hr IV Q24H [facility] Last Admin: 01/25/20 16:59 Dose: 100 mls/hr Documented by: Ondansetron HCl (Zofran) 4 mg IVPUSH Q4H PRN PRN Reason: Nausea Pantoprazole Sodium (Protonix) 40 mg PO DAILY [facility] Last Admin: 01/26/20 09:43 Dose: 40 mg Documented by: Discontinued Medications Dexamethasone (Decadron) 6 mg IVPUSH ONETIME ONE Stop: 01/24/20 16:29 Last Admin: 01/24/20 17:04 Dose: 6 mg Documented by: Remdesivir 200 mg/ Sodium (Chloride) 250 mls @ 250 mls/hr IV ONETIME ONE Stop: 01/24/20 16:32 Last Admin: 01/24/20 17:42 Dose: 250 mls/hr Documented by: Lactated Ringer's (Ringers, Lactated) 1,000 mls @ 999 mls/hr IV .BOLUS ONE Stop: 01/24/20 17:33 Last Admin: 01/24/20 17:04 Dose: 999 mls/hr Documented by:
== END 2020-01-26 14:00 | disposition home or self-care (01) | DRG 137 ==
LOC: MW.ED 13:50 → MW.MS 16:31
PROVIDERS: ADMIT Internal Medicine; ATTEND Internal Medicine
PROC: XW033E5 Introduction of Remdesivir Anti-infective into Peripheral Vein, Percutaneous Approach, New Technology Group 5 (ICD-10-PCS; principal; 2020-01-24)
DX: U07.1 COVID-19 (principal); J96.01 Acute respiratory failure with hypoxia; N17.9 Acute kidney failure, unspecified; R07.89 Other chest pain
CPT/HCPCS: 36415; 71045; 71045-26; 80053; 83605; 83735; 84100; 84484; 85025; 87040; 93005; 93010; 94640; 99222; 99231; 99238; 99283; 99285-25; A9270-GY; J0696; J1100; J1650; J7050; J7120; J8540